=== PATIENT | female | born 1945 | race Caucasian/White ===

== ENCOUNTER → 2022-01-18 | Outpatient (CLI) | payer MEDICARE, OTHER ==
[~2022-01-18] MED LIST: Amlodipine Bes2.5 MG PO; LISI20 PO
== END | disposition home or self-care (01) ==
LOC: LAB SHORT 12:26 → PLD 12:26
DX: D22.4 Melanocytic nevi of scalp and neck (principal)
CPT/HCPCS: 88305

== ENCOUNTER 2022-03-17 09:09 | Day surgery (SDC) | payer MEDICARE, OTHER ==
[~2022-03-17] VITALS: Ht 175.3 cm; Wt 76.3 kg
[~2022-03-17 09:09] MED LIST changes: +AMLO5 PO; -Amlodipine Bes2.5 MG PO; +SPIR25 PO
== END 2022-03-17 11:30 | disposition home or self-care (01) ==
LOC: ORSCSDS 09:09
PROVIDERS: Surgery
PROC: 0DBP8ZX Excision of Rectum, Via Natural or Artificial Opening Endoscopic, Diagnostic (ICD-10-PCS; principal; 2022-03-17 10:30)
DX: Z12.11 Encounter for screening for malignant neoplasm of colon (principal); Z86.010 Personal history of colon polyps; K62.1 Rectal polyp; I10 Essential (primary) hypertension; Z79.899 Other long term (current) drug therapy
CPT/HCPCS: 88305; J2704; J7120

== ENCOUNTER 2024-01-19 08:53 | Emergency (ER) | payer MEDICARE, OTHER ==
[~2024-01-19] VITALS: Ht 175.3 cm; Wt 76.2 kg
[2024-01-19 09:10] VITALS: BP 143/60
[2024-01-19 09:36] LABS: Source, Urine Clean Catch
[2024-01-19 09:42] LABS: Appearance, Urine Cloudy (Clear); Bilirubin, Urine Neg (Neg); Blood, Urine 5+ (Neg); Color, Urine Brown (P-Yellow); Glucose Qualitative, Urine Neg (Neg); Ketones, Urine Neg (Neg); Leukocyte Esterase, Urine 3+ (Neg); Nitrite, Urine Pos (Neg); Protein, Urine 4+ (Neg); Specific Gravity, Urine 1.025 (1.003-1.022); Urobilinogen, Urine 1+ (Normal)
[2024-01-19 09:55] LABS: Bacteria Many /hpf; Red Blood Cells, Urine TNTC /hpf (0-2); Squamous Epithelial Cells Rare /hpf (Few); White Blood Cells, Urine TNTC /hpf (0-5)
[2024-01-19] MEDS ORDERED: Cefdinir 300 MG Cap PO ONE (10:10)
[2024-01-19] MEDS ORDERED: CEFD300 PO (10:16)
[2024-01-19] MEDS ORDERED: Pyridium100 MG PO (10:16)
== END 2024-01-19 10:35 | disposition home or self-care (01) ==
LOC: ER 08:53
PROVIDERS: Emergency Medicine
DX: N30.91 Cystitis, unspecified with hematuria (principal); Z88.8 Allergy status to other drugs, medicaments and biological substances; Z88.2 Allergy status to sulfonamides; Z79.899 Other long term (current) drug therapy; I10 Essential (primary) hypertension
CPT/HCPCS: 81001; A9270

== ENCOUNTER 2024-06-28 07:29 | Emergency (ER) | payer MEDICARE, OTHER ==
[~2024-06-28] VITALS: Ht 175.3 cm; Wt 73.5 kg
[~2024-06-28 07:29] MED LIST changes: +CEFD300 PO; +Pyridium100 MG PO
[2024-06-28] MEDS ORDERED: POLYTRIM EYE DR10 M1 RIGHTEYE (08:27)
[2024-06-28] MEDS ORDERED: ERYT.5TO RIGHTEYE (08:30)
[2024-06-28 08:41] VITALS: BP 130/56
== END 2024-06-28 09:00 | disposition home or self-care (01) ==
LOC: ER 07:29
DX: H10.89 Other conjunctivitis (principal); B96.89 Other specified bacterial agents as the cause of diseases classified elsewhere; I10 Essential (primary) hypertension; Z79.899 Other long term (current) drug therapy; Z88.2 Allergy status to sulfonamides; Z88.8 Allergy status to other drugs, medicaments and biological substances
CPT/HCPCS: 99282

== ENCOUNTER 2024-06-28 20:10 | Emergency (ER) | payer MEDICARE, OTHER ==
[~2024-06-28] VITALS: Ht 175.3 cm; Wt 73.5 kg
[~2024-06-28 20:10] MED LIST changes: +ERYT.5TO RIGHTEYE; +POLYTRIM EYE DR10 M1 RIGHTEYE
[2024-06-28 20:20] VITALS: BP 151/70
== END 2024-06-28 22:12 ==
LOC: ER 20:10
DX: R07.89 Other chest pain (principal); I10 Essential (primary) hypertension; Z79.899 Other long term (current) drug therapy; Z88.2 Allergy status to sulfonamides; Z88.8 Allergy status to other drugs, medicaments and biological substances
CPT/HCPCS: 71101; 99283-25